=== PATIENT | female | born 1955 | race Caucasian/White ===

== ENCOUNTER → 2023-11-15 13:50 | Outpatient (REF) | payer MEDICARE, OTHER, SELFPAY ==
[2023-11-15 15:20] LABS: % Basophils 0.5 % (0-2); % Eosinophils 2.2 % (0-6); % Immature Granulocytes 0.4 % (0-0.5); % Lymphocytes 23.7 % (20.5-51.1); % Monocytes 5.8 % (1.7-9.3); % Neutrophils 67.4 % (42.2-75.2); Absolute Eosinophils 0.2 10^3/uL (0-0.7); Absolute Lymphocytes 1.9 10^3/uL (1.2-3.4); Absolute Monocytes 0.5 10^3/uL (0.1-0.6); Absolute Neutrophils 5.3 10^3/uL (1.4-6.5); Hematocrit 38.1 % (37.0-47.0); Hemoglobin 12.4 g/dL (12.0-16.0); Mean Corp Hgb Conc. 32.5 g/dL (33.0-37.0); Mean Corpuscular Hgb 28.3 pg (27.0-31.0); Mean Platelet Volume 9.7 fL (7.4-10.4); Nucleated Red Blood Cells % 0 %; Platelet Count 347 10^3/uL (130-400); Red Blood Cell Count 4.38 10^6/uL (4.20-5.40); White Blood Cell Count 7.8 10^3/uL (4.8-10.8)
[2023-11-15 16:06] LABS: ALT (SGPT) 21 U/L (0-35); AST (SGOT) 25 U/L (14-36); Albumin 3.5 g/dl (3.5-5.0); Alkaline Phosphatase 63 U/L (38-126); Blood Urea Nitrogen 18 mg/dl (7-17); Calcium 9.2 mg/dl (8.4-10.2); Carbon Dioxide 34 mmol/L (22-30); Chloride 98 mmol/L (98-107); Glucose 93 mg/dl (70-99); Potassium 4.5 mmol/L (3.5-5.1); Sodium 136 mmol/L (135-145); Total Bilirubin 0.4 mg/dl (0.2-1.3); Total Protein 5.9 g/dl (6.3-8.2); eGFR > 60.00
[2023-11-15 18:16] LABS: TSH Reflex To Free T4 1.88 uIU/ml (0.47-4.68)
== END ==
LOC: RCS 13:50
PROVIDERS: ATTENDING PHYSICIAN Student in an Organized Health Care Education/Training Program
DX: Z86.73 Personal history of transient ischemic attack (TIA), and cerebral infarction without residual deficits (principal); R50.9 Fever, unspecified; L43.8 Other lichen planus; M25.50 Pain in unspecified joint; M79.2 Neuralgia and neuritis, unspecified; L30.9 Dermatitis, unspecified
CPT/HCPCS: 36415; 80053; 84443; 85025; 93307

== ENCOUNTER → 2024-05-14 06:20 | Day surgery (SDC) | payer MEDICARE, OTHER, SELFPAY | LOC: GI 06:20 | PROVIDERS: ATTENDING PHYSICIAN Internal Medicine Gastroenterology | DX: R13.10 Dysphagia, unspecified (principal); K44.9 Diaphragmatic hernia without obstruction or gangrene; K31.89 Other diseases of stomach and duodenum; K22.89 Other specified disease of esophagus; K29.50 Unspecified chronic gastritis without bleeding | CPT/HCPCS: 43249; 43239; 88305; 87220; 88342 ==

== ENCOUNTER → 2024-05-15 10:20 | Outpatient (REF) | payer MEDICARE, OTHER, SELFPAY | LOC: RAD 10:20 | PROVIDERS: ATTENDING PHYSICIAN Internal Medicine Rheumatology; FAMILY PHYSICIAN Student in an Organized Health Care Education/Training Program; REFERRING PHYSICIAN Internal Medicine Hospice and Palliative Medicine | DX: M25.50 Pain in unspecified joint (principal) | CPT/HCPCS: 78306; A9503 ==

== ENCOUNTER → 2024-08-08 14:27 | Outpatient (REF) | payer MEDICARE, OTHER, SELFPAY | LOC: WDC 14:27 | PROVIDERS: ATTENDING PHYSICIAN Student in an Organized Health Care Education/Training Program | DX: Z12.31 Encounter for screening mammogram for malignant neoplasm of breast (principal) | CPT/HCPCS: 77063; 77067 ==

== ENCOUNTER 2024-10-08 06:19 | Day surgery (SDC) | payer MEDICARE, OTHER, SELFPAY | END 2024-10-08 14:30 | disposition home or self-care (01) | LOC: GI 06:19 | PROVIDERS: ATTENDING PHYSICIAN Internal Medicine Gastroenterology; FAMILY PHYSICIAN Student in an Organized Health Care Education/Training Program | DX: Z12.11 Encounter for screening for malignant neoplasm of colon (principal); K59.00 Constipation, unspecified; K64.8 Other hemorrhoids; K57.30 Diverticulosis of large intestine without perforation or abscess without bleeding; Z79.891 Long term (current) use of opiate analgesic | CPT/HCPCS: G0121 ==

== ENCOUNTER → 2024-12-12 11:18 | Outpatient (REF) | payer MEDICARE, OTHER, SELFPAY | LOC: HWRCS 11:18 | PROVIDERS: ATTENDING PHYSICIAN Student in an Organized Health Care Education/Training Program | DX: R06.09 Other forms of dyspnea (principal); G89.4 Chronic pain syndrome | CPT/HCPCS: 78452; 93017; A9500; J2785 ==

== ENCOUNTER → 2024-12-29 11:37 | Outpatient (REF) | payer MEDICARE, OTHER, SELFPAY ==
[2024-12-29 12:53] LABS: Erythrocyte Sed Rate 7 mm/hour (0-20)
[2024-12-29 12:54] LABS: % Basophils 0.8 % (0-2); % Eosinophils 6.8 % (0-6); % Immature Granulocytes 0.2 % (0-0.5); % Lymphocytes 27.2 % (20.5-51.1); % Monocytes 6.6 % (1.7-9.3); % Neutrophils 58.4 % (42.2-75.2); Absolute Basophils 0.1 10^3/uL (0-0.2); Absolute Eosinophils 0.4 10^3/uL (0-0.7); Absolute Lymphocytes 1.6 10^3/uL (1.2-3.4); Absolute Monocytes 0.4 10^3/uL (0.1-0.6); Absolute Neutrophils 3.5 10^3/uL (1.4-6.5); Hematocrit 40.3 % (37.0-47.0); Hemoglobin 12.7 g/dL (12.0-16.0); Mean Corp Hgb Conc. 31.5 g/dL (33.0-37.0); Mean Corpuscular Hgb 28.3 pg (27.0-31.0); Mean Platelet Volume 10.6 fL (7.4-10.4); Nucleated Red Blood Cells % 0 %; Platelet Count 325 10^3/uL (130-400); Red Blood Cell Count 4.48 10^6/uL (4.20-5.40); Red Cell Dist. Width 14.5 % (11.5-14.5); White Blood Cell Count 5.9 10^3/uL (4.8-10.8)
[2024-12-29 13:20] LABS: ALT (SGPT) 43 U/L (0-35); AST (SGOT) 35 U/L (14-36); Albumin 3.7 g/dl (3.5-5.0); Alkaline Phosphatase 77 U/L (38-126); Blood Urea Nitrogen 17 mg/dl (7-17); Calcium 9.8 mg/dl (8.4-10.2); Carbon Dioxide 36 mmol/L (22-30); Chloride 104 mmol/L (98-107); Glucose 105 mg/dl (70-99); HDL Cholesterol 86 mg/dl; LDL Cholesterol, Calculated 78 mg/dl; Potassium 4.8 mmol/L (3.5-5.1); Sodium 143 mmol/L (135-145); Total Bilirubin 0.4 mg/dl (0.2-1.3); Total Cholesterol 176 mg/dl (50-199); Total Protein 6.2 g/dl (6.3-8.2); Triglyceride 60 mg/dl (10-149); Very Low Density Lipoprotein 12 mg/dl (0-30); eGFR > 60.00
[2024-12-29 13:50] LABS: TSH Reflex To Free T4 0.03 uIU/ml (0.47-4.68)
[2024-12-29 14:19] LABS: Free T4 2.05 ng/dl (0.78-2.19)
== END ==
LOC: REG 11:37
PROVIDERS: ATTENDING PHYSICIAN Student in an Organized Health Care Education/Training Program
DX: M25.511 Pain in right shoulder (principal); G89.29 Other chronic pain; M25.512 Pain in left shoulder; R06.09 Other forms of dyspnea; Z00.00 Encounter for general adult medical examination without abnormal findings; I10 Essential (primary) hypertension; E78.00 Pure hypercholesterolemia, unspecified
CPT/HCPCS: 36415; 80053; 80061; 84439; 84443; 85025; 85652; 86140

== ENCOUNTER → 2025-05-12 13:15 | Outpatient (REF) | payer MEDICARE, OTHER, SELFPAY ==
[2025-05-12 15:19] LABS: Free T3 3.92 pg/ml (2.77-5.27)
[2025-05-14 21:23] LABS: Thyroglobulin Antibodies <1.5 IU/mL (0.0-4.0)
== END ==
LOC: REG 13:15
PROVIDERS: ATTENDING PHYSICIAN Student in an Organized Health Care Education/Training Program; REFERRING PHYSICIAN Internal Medicine Cardiovascular Disease
DX: R79.89 Other specified abnormal findings of blood chemistry (principal); I10 Essential (primary) hypertension
CPT/HCPCS: 36415; 84443; 84481; 86376; 86800

== ENCOUNTER → 2025-07-11 10:05 | Outpatient (REF) | payer MEDICARE, OTHER, SELFPAY ==
[2025-07-11 11:07] LABS: ALT (SGPT) 24 U/L (0-35); AST (SGOT) 26 U/L (14-36); Albumin 4.4 g/dl (3.5-5.0); Alkaline Phosphatase 68 U/L (38-126); Total Protein 7.4 g/dl (6.3-8.2)
== END ==
LOC: REG 10:05
PROVIDERS: ATTENDING PHYSICIAN Psychiatry & Neurology Vascular Neurology; FAMILY PHYSICIAN Student in an Organized Health Care Education/Training Program; REFERRING PHYSICIAN Internal Medicine Cardiovascular Disease
DX: G90.50 Complex regional pain syndrome I, unspecified (principal); Z01.812 Encounter for preprocedural laboratory examination
CPT/HCPCS: 36415; 80076

== ENCOUNTER → 2025-07-18 11:59 | Outpatient (REF) | payer MEDICARE, OTHER, SELFPAY ==
[2025-07-18 13:02] LABS: ALT (SGPT) 16 U/L (0-35); AST (SGOT) 19 U/L (14-36); Albumin 4.2 g/dl (3.5-5.0); Alkaline Phosphatase 68 U/L (38-126); Total Protein 6.9 g/dl (6.3-8.2)
== END ==
LOC: REG 11:59
PROVIDERS: ATTENDING PHYSICIAN Psychiatry & Neurology Vascular Neurology; FAMILY PHYSICIAN Student in an Organized Health Care Education/Training Program; OTHER PHYSICIAN Internal Medicine Cardiovascular Disease
DX: G90.50 Complex regional pain syndrome I, unspecified (principal); Z01.812 Encounter for preprocedural laboratory examination
CPT/HCPCS: 36415; 80076